=== PATIENT | female | born 1980 | race Caucasian/White ===

== ENCOUNTER 2021-11-28 00:26 | Emergency (ER) | payer SELFPAY ==
[~2021-11-28] VITALS: Ht 160 cm; Wt 72.6 kg
--- NOTE | 2021-11-28 00:28 | NUR ---
BIB TAKEN TO BED #5
[2021-11-28 00:30] VITALS: BP 126/91
--- NOTE | 2021-11-28 00:30 | NUR ---
BIBA TO BED 5 WITH C/O BREAST PAIN X [address] LOZOYA AT BEDSIDE, BREAST EXAM DONE WITH MYSELF CHAPERONING. NO OBVIOUS DEFORMITIES OR DRAINAGE NOTED. PT IS VERY TEARFUL AND ANXIOUS. ADMITS TO ALCOHOL CONSUMPTION
--- NOTE | 2021-11-28 01:10 | NUR ---
US AT BEDSIDE.
[2021-11-28 04:45] VITALS: BP 118/74
--- NOTE | 2021-11-28 04:45 | NUR ---
EXAM RESULTS RETURNED, REVIEWED AND PT READY FOR DISCHARGE.Patient discharged with v/s stable. Written and verbal after care instructions given and explained. Patient verbalized understanding. Ambulatory with steady gait. All questions addressed prior to discharge. Advised to follow up with PMD.
== END 2021-11-28 04:45 | disposition home or self-care (01) ==
LOC: MED 00:26
DX: N60.21 Fibroadenosis of right breast (principal); N60.22 Fibroadenosis of left breast
CPT/HCPCS: 76641; 99284; Q0092